=== PATIENT | male | born 1965 | race Hispanic/Latino ===

== ENCOUNTER 2018-08-13 19:27 | Emergency (ER) | payer SELFPAY ==
[2018-08-13 19:56] LABS: Absolute Monocytes 0.8 K/uL (0.1-1.3); Absolute Neutrophil 4.4 K/uL (1.8-8.0); Basophils % 0.5 % (0-1.3); Eosinophils % 2.1 % (0-4.4); Hematocrit 44.9 % (39.6-49.0); Lymphocytes % 35.8 % (15.3-44.8); MCH 30.2 pg (27.0-35.0); MPV 7.9 fL (7.6-11.3); Monocytes % 9.6 % (3.3-12.3); RBC Red Blood Cell Count 5.16 M/uL (4.33-5.43)
--- NOTE | 2018-08-13 19:56 | RAD REPORT ---
EXAM DESCRIPTION: CT - Ct Stroke Brain Wo Cont - 08/13/2018 7:41 pm CLINICAL HISTORY: Right-sided numbness of the face and arm, left arm weakness and slurred speech, di abetic history CLINICAL HISTORY: None. TECHNIQUE: Axial 5 millimeter thick images of the head were obtained without IV contrast. All CT scans are performed using dose optimization technique as appropriate and may include automated exposure control or mA/KV adjustment according to patient size. FINDINGS: No intracranial hemorrhage, mass, or cerebral edema. No acute cortical based infarction id entified. No cortical edema or sulcal effacement. No atrophy changes are present. There are scattered areas of diminished attenuation in the cerebral white matter most commonly associated with chronic i schemic change. Nonhemorrhagic acute CVA can be masked in this setting. No extra-axial fluid collecti ons. Guillen matter-white matter differentiation is preserved. Ventricles are normal. Visualized portions of the mastoid air cells, paranasal sinuses, and orbits are unremarkable. Findings telephoned to the referring physician 7:46 p.m. IMPRESSION: No hemorrhage is present and no acute cortical based infarction. White matter chronic ischemic changes are evident. No atrophy. Chronic ischemic changes can mask nonhemorrhagic acute infarction. MR brain followup can be obtained if there is ongoing concern for acute ischemia.
[2018-08-13 19:59] LABS: Protime INR 0.97
--- NOTE | 2018-08-13 20:07 | RAD REPORT ---
EXAM DESCRIPTION: RAD - Chest Single View - 08/13/2018 7:55 pm CLINICAL HISTORY: Stroke protocol chest film COMPARISON: None. TECHNIQUE: AP portable chest image was obtained 1941 hours . FINDINGS: Lungs are clear. Heart and vasculature are normal. No measurable pleural effusion and no p neumothorax. No acute bony abnormality seen. No acute aortic findings suspected. IMPRESSION: No acute cardiopulmonary process.
[2018-08-13 20:09] LABS: Potassium 3.7 mmol/L (3.5-5.1)
[2018-08-13] MEDS ORDERED: ASPIRIN 81 MG CHEWABLE TABLET ONE (20:10)
[2018-08-13] MEDS ORDERED: LABETALOL 20 MG/4ML SYRINGE IV ONE (20:10)
--- NOTE | 2018-08-13 21:03 | EDPHYS ---
Physician Documentation [facility] Name: Sarbjit Terry Age: 53 yrs Sex: Male : 1965 Arrival Date: 08/13/2018 Time: 19:29 Bed 3 Private MD: ED Physician Juancarlos Almanza HPI: 08/13 20:35 This 53 yrs old Male presents to ER via Ambulatory with complaints of Numbness wa Of Arm, Numbness Of Face. 20:35 The patient's problem is reported as paresthesias, in right upper extremity, in right wa side of face. Onset: The symptoms/episode began/occurred 1 hour(s) ago. Duration: This was a single incident. Context: the episode(s) was witnessed, by family, symptoms became apparent at an unknown time, occurred at home, occurred while the patient was eating, Possible contributing factors include: Patient is a know diabetic. HTN. pt states R face and arm became tingly and weak while having dinner. also numbness to R pectoral muscle. denies speech impediment. denies FUNK. denies h/o same in the past. The symptoms are alleviated by nothing. The symptoms are aggravated by nothing. Associated signs and symptoms: Pertinent positives: numbness, tingling, R face, RUE, and R pectoral area, Pertinent negatives: ataxia, blurred vision, chest pain, confusion, diaphoresis, dizziness, headache, lightheadedness, nausea, palpitations, seizure, shortness of breath. Severity of symptoms: At their worst the symptoms were moderate in the emergency department the symptoms are unchanged. Patient's baseline: Neuro: alert and fully oriented, Motor: no deficits, Ambulation: walks without assistance, Speech: normal, The patient has a previous history of HTN, DM. The patient has not experienced similar symptoms in the past. The patient has not recently seen a physician. Historical: - Allergies: 20:07 No Known Allergies; aj 20:07 No Known Allergies; aa1 - Home Meds: 20:07 Unable to obtain [Active]; aa1 - PMHx: 20:07 Hypertension; Diabetes - IDDM; aj 20:07 Hypertension; Diabetes - IDDM; aa1 - PSHx: 20:07 Appendectomy; aa1 - Immunization history:: Flu vaccine is not up to date. - Social history:: Smoking status: Patient/guardian denies using tobacco. - Ebola Screening: : Patient denies exposure to infectious person Patient denies travel to an Ebola-affected area in the 21 days before illness onset. - Family history:: not pertinent. - Hospitalizations: : No recent hospitalization is reported. ROS: 20:48 Constitutional: Negative for fever, chills, and weight loss, Eyes: Negative for injury, wa pain, redness, and discharge, ENT: Negative for injury, pain, and discharge, Neck: Negative for injury, pain, and swelling, Cardiovascular: Negative for chest pain, palpitations, and edema, Respiratory: Negative for shortness of breath, cough, wheezing, and pleuritic chest pain, Abdomen/GI: Negative for abdominal pain, nausea, vomiting, diarrhea, and constipation, Back: Negative for injury and pain, : Negative for injury, bleeding, discharge, and swelling, MS/Extremity: Negative for injury and deformity, Skin: Negative for injury, rash, and discoloration. 20:48 Neuro: Positive for tingling, weakness, numbness, R face, RUE, R chest wall. 20:48 All other systems are negative. Exam: 20:49 Radiologist reports: normal wa 20:49 Constitutional: This is a well developed, well nourished patient who is awake, alert, and in no acute distress. Head/Face: Normocephalic, atraumatic. Eyes: Pupils equal round and reactive to light, extra-ocular motions intact. Lids and lashes normal. Conjunctiva and sclera are non-icteric and not injected. Cornea within normal limits. Periorbital areas with no swelling, redness, or edema. ENT: Nares patent. No nasal discharge, no septal abnormalities noted. Tympanic membranes are normal and external auditory canals are clear. Oropharynx with no redness, swelling, or masses, exudates, or evidence of obstruction, uvula midline. Mucous membranes moist. Neck: Trachea midline, no thyromegaly or masses palpated, and no cervical lymphadenopathy. Supple, full range of motion without nuchal rigidity, or vertebral point tenderness. No Meningismus. Chest/axilla: Normal chest wall appearance and motion. Nontender with no deformity. No lesions are appreciated. Cardiovascular: Regular rate and rhythm with a normal S1 and S2. No gallops, murmurs, or rubs. Normal PMI, no JVD. No pulse deficits. Respiratory: Lungs have equal breath sounds bilaterally, clear to auscultation and percussion. No rales, rhonchi or wheezes noted. No increased work of breathing, no retractions or nasal flaring. Abdomen/GI: Soft, non-tender, with normal bowel sounds. No distension or tympany. No guarding or rebound. No evidence of tenderness throughout. Back: No spinal tenderness. No costovertebral tenderness. Full range of motion. Skin: Warm, dry with normal turgor. Normal color with no rashes, no lesions, and no evidence of cellulitis. MS/ Extremity: Pulses equal, no cyanosis. Neurovascular intact. Full, normal range of motion. Psych: Awake, alert, with orientation to person, place and time. Behavior, mood, and affect are within normal limits. 20:49 Neuro: Orientation: is normal, Mentation: is normal, Memory: is normal, Cranial nerves: grossly normal, Motor: Strength is 1/5 in the right arm, Sensation: decreased R upper and lower face. no droop, initial exam: pt noted to concentrate harder to keep RUE on par with LUE on pronator drift exam. He was able to hold it through through the exam however. no facial droop noted. LE strength was strong and symmetrical. subtle weakness of RUE noted on assessment of [facility] specialist strength. no dysarthria or slurred speech. Vital Signs: 19:43 BP 191 / 88; Pulse 78; Resp 16; Temp 99.5; Pulse Ox 100% on R/A; Weight 81.65 kg; aa1 Height 5 ft. 6 in. (167.64 cm); Pain 0/10; 19:59 BP 172 / 92; Pulse 84; Resp 16; Pulse Ox 100% on R/A; Pain 0/10; aa1 20:51 BP 166 / 87; Pulse 87; Resp 16; Temp 98.8; Pulse Ox 100% on R/A; Pain 0/10; aa1 19:43 Body Mass Index 29.05 (81.65 kg, 167.64 cm) aa1 NIH Stroke Scale Scores: 19:43 NIHSS Score: 3 aa1 20:22 NIHSS Score: 0 aa1 MDM: 19:53 Patient medically screened. id 20:53 Differential diagnosis: CVA, TIA, concern for acute CVA. stat conversation with id neurology at [facility] at 1950 hrs: Dr. Hester advised to consent pt for TPA. initial BP 190/88. plan to control for sys <185. Pt however noted with BP of 172/85 on the next check prior to labetalol admin so held the drug. risks and benefits of TPA advised. pt. consulted with family for about 20 min vacillating. initially refused, then agreed. Re-exam when he agreed, symptom have resolved. numbness to face and chest resolved. strength equal. numb sensation to right pec area resolved. pt at baseline. TPA held due to rapidly resolved symptoms. pt was given as ASA. discussed extensively with family for shared decision-making. Will transfer emergently to [facility] for further care. Data reviewed: vital signs, nurses notes. 21:00 Response to treatment: the patient's symptoms have markedly improved after treatment. id Physician consultation:. 21:02 Test interpretation: by ED physician or midlevel provider: EKG: HR 82. no dysrhythmia. id wnl. , not applicable. 21:04 Test interpretation: by ED physician or midlevel provider: normal coags. nml cbc. [facility] noted for elevated glucose of 142. Cr 1.4. 21:09 Test interpretation: by ED physician or midlevel provider: nml CXR. id 08/13 19:38 Order name: Basic Metabolic Panel; Complete Time: 20:34 08/13 19:38 Order name: CBC with Diff; Complete Time: 20:34 08/13 19:38 Order name: Protime (+inr); Complete Time: 20:34 08/13 19:38 Order name: Ptt, Activated; Complete Time: 20:34 08/13 19:38 Order name: CT Stroke Brain w/o Contrast 08/13 19:38 Order name: Stroke CXR 1 View; Complete Time: 21: 08/13 19:38 Order name: EKG; Complete Time: 19:39 08/13 19:38 Order name: Accucheck; Complete Time: 20:08 08/13 19:38 Order name: Cardiac monitoring; Complete Time: 20:08 08/13 19:38 Order name: EKG - Nurse/Tech; Complete Time: 20:08 08/13 19:38 Order name: IV Saline Lock; Complete Time: 20:08 bb 08/13 19:38 Order name: Labs collected and sent; Complete Time: 20: bb 08/13 19:38 Order name: NPO; Complete Time: 20: bb 08/13 19:38 Order name: O2 Per Protocol; Complete Time: 20: bb 08/13 19:38 Order name: O2 Sat Monitoring; Complete Time: 20: bb 08/13 19:38 Order name: Stroke Swallow Screen; Complete Time: 20:08 bb Administered Medications: 20:04 Drug: Aspirin Chewable Tablet 324 mg Route: PO; bb 21:00 Follow up: Response: No adverse reaction aa1 21:10 Not Given (Physician Discretion): Labetalol 10 mg IVP once over 2 mins aa1 Point of Care Testing: Blood Glucose: 19:49 Blood Glucose: 124 mg/dL; ds4 Ranges: Critical Glucose Levels:Adult <50 mg/dl or >400 mg/dl <40 mg/dl or >180 mg/dl Disposition: 08/13/18 21:[address] [facility]. Diagnosis is Transient Acute onset R facial and upper extremity numbness with R upper extremity weakness. - Reason for transfer: Higher level of care. - Accepting physician is Dr. Hester. - Condition is Stable. - Problem is new. - Symptoms have improved. Critical care time excluding procedures: 21:09 Critical care time: Bedside Care: 15 minutes, Consultation: 5 minutes, Family wa Intervention: 15 minutes. Total time: 35 minutes NIH Stroke Scale - NIH Stroke Score Date: 08/13/2018 Time: 19:43 Total Score = 3 1a. Level of Consciousness (LOC) - 0(Alert) 1b. Level of Consciousness (LOC) (Year \T\ Age) - 0(Both) 1c. LOC Commands (Open \T\ Closes Eyes/Medical Physics Professor) - 0(Both) 2. Best Gaze (Lateral Gaze Paresis) - 0(Normal) 3. Visual Field Loss - 0(No visual loss) 4. Facial Palsy - 0(Normal) 5a. Left Arm: Motor (10-second hold) - 0(No drift) 5b. Right Arm: Motor (10-second hold) - 1(Drift) 6a. Left Leg: Motor (5-second hold - always test supine) - 0(No drift) 6b. Right Leg: Motor (5-second hold - always test supine) - 0(No drift) 7. Limb Ataxia (finger/nose \T\ heel/sagastume - test with eyes open) - 0(Absent) 8. Sensory Loss (pinprick arms/legs/face) - 1(Mild to moderate loss) 9. Best Language: Aphasia (description/naming/reading) - 0(No aphasia) 10. Dysarthria (speech clarity - read or repeat words) - 1(Mild to Moderate) 11. Extinction and Inattention (visual/tactile/auditory/spatial/personal) - 0(No abnormality) Initials: aa1 NIH Stroke Scale - NIH Stroke Score Date: 08/13/2018 Time: 20:22 Total Score = 0 1a. Level of Consciousness (LOC) - 0(Alert) 1b. Level of Consciousness (LOC) (Year \T\ Age) - 0(Both) 1c. LOC Commands (Open \T\ Closes Eyes/Medical Physics Professor) - 0(Both) 2. Best Gaze (Lateral Gaze Paresis) - 0(Normal) 3. Visual Field Loss - 0(No visual loss) 4. Facial Palsy - 0(Normal) 5a. Left Arm: Motor (10-second hold) - 0(No drift) 5b. Right Arm: Motor (10-second hold) - 0(No drift) 6a. Left Leg: Motor (5-second hold - always test supine) - 0(No drift) 6b. Right Leg: Motor (5-second hold - always test supine) - 0(No drift) 7. Limb Ataxia (finger/nose \T\ heel/sagastume - test with eyes open) - 0(Absent) 8. Sensory Loss (pinprick arms/legs/face) - 0(Normal) 9. Best Language: Aphasia (description/naming/reading) - 0(No aphasia) 10. Dysarthria (speech clarity - read or repeat words) - 0(Normal) 11. Extinction and Inattention (visual/tactile/auditory/spatial/personal) - 0(No abnormality) Initials: aa1 Signatures: Dispatcher [employer] Vielka Morgan RN RN aa1 Deborah Jo RN RN aj Ballard, Brenda, RN RN bb Appiah, William, MD MD wa Corrections: (The following items were deleted from the chart) 21:10 21:02 08/13/2018 21:[address] [facility]. aa1 Diagnosis is Transient Acute onset R facial and upper extremity numbness with R upper extremity weakness. Reason for transfer: Higher level of care. Accepting physician is Dr. Hester. Condition is Stable. Problem is new. Symptoms have improved. wa
--- NOTE | 2018-08-13 21:03 | ER ---
Nurse's Notes [facility] Name: Sarbjit Terry Age: 53 yrs Sex: Male : 1965 Arrival Date: 08/13/2018 Time: 19:29 Bed 3 Private MD: Diagnosis: Transient Acute onset R facial and upper extremity numbness with R upper extremity weakness Presentation: 08/13 19:32 Presenting complaint: Patient states: Numbness and weakness to right arm and right side aj of face with slurred speech and unsteady gait that started at 1845. Patient states "I don't feel right.". Transition of care: patient was not received from another setting of care. 19:32 Method Of Arrival: Ambulatory 19:34 An acute neurological deficit is present. The charge nurse has been notified. The aj patient has been moved to a treatment area. Onset of symptoms was August 13, 2018 at 18:45. Risk Assessment: Do you want to hurt yourself or someone else? Patient reports no desire to harm self or others. Initial Sepsis Screen: Does the patient meet any 2 criteria? No. Patient's initial sepsis screen is negative. Does the patient have a suspected source of infection? No. Patient's initial sepsis screen is negative. Care prior to arrival: None. 19:34 Acuity: BREANNE 2 aj 19:43 Pre-hospital glucose is not applicable to this patient. aa1 Triage Assessment: 20:07 The onset of the patients symptoms was August 13, 2018 at 18:45. General: Appears in aj no apparent distress. uncomfortable, Behavior is cooperative, anxious. Pain: Denies pain. 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 Respiratory: Airway is patent Respiratory effort is even, unlabored, Respiratory pattern is regular, symmetrical. Derm: Skin is intact, is healthy with good turgor, Skin is pink, warm \\T\\ dry. normal. Stroke Activation: Symptom onset < 3 hours Physician: Stroke Attending; Name: ; Notified At: ; Arrived At: Physician: Chief Stroke Resident; Name: ; Notified At: ; Arrived At: Physician: Stroke Resident; Name: ; Notified At: ; Arrived At: Physician: ED Attending; Name: ; Notified At: ; Arrived At: Physician: ED Resident; Name: ; Notified At: ; Arrived At: Historical: - Allergies: 20:07 No Known Allergies; aj 20:07 No Known Allergies; aa1 - Home Meds: 20:07 Unable to obtain [Active]; aa1 - PMHx: 20:07 Hypertension; Diabetes - IDDM; aj 20:07 Hypertension; Diabetes - IDDM; aa1 - PSHx: 20:07 Appendectomy; aa1 - Immunization history:: Flu vaccine is not up to date. - Social history:: Smoking status: Patient/guardian denies using tobacco. - Ebola Screening: : Patient denies exposure to infectious person Patient denies travel to an Ebola-affected area in the 21 days before illness onset. - Family history:: not pertinent. - Hospitalizations: : No recent hospitalization is reported. Screenin:43 Abuse screen: Denies threats or abuse. Denies injuries from another. Nutritional aa1 screening: No deficits noted. Tuberculosis screening: No symptoms or risk factors identified. Fall Risk None identified. Assessment: 19:35 Reassessment: Patient appears in no apparent distress at this time. Pt taken directly aa1 to CT from triage. 19:43 Reassessment: Patient appears in no apparent distress at this time. Patient is alert, aa1 oriented x 3, equal unlabored respirations, skin warm/dry/pink. Pt arrived to ED [address] 19:45 General: Appears in no apparent distress. comfortable, Behavior is calm, cooperative, aa1 appropriate for age. Pain: Denies pain. Neuro: Level of Consciousness is awake, alert, obeys commands, Oriented to person, place, time, situation, Custom Dressmaker are equal bilaterally Moves all extremities. with slight weakness of RUE. Speech slightly slurred. Facial symmetry appears normal, Pupils are PERRLA, minimal decreased sensation of R face and arm. Denies blurred vision dizziness, difficulty swallowing, headache diplopia. Cardiovascular: Heart tones S1 S2 present Rhythm is regular. Respiratory: Airway is patent Respiratory effort is even, unlabored, Respiratory pattern is regular, symmetrical. GI: No signs and/or symptoms were reported involving the gastrointestinal system. : No signs and/or symptoms were reported regarding the genitourinary system. EENT: No signs and/or symptoms were reported regarding the EENT system. Derm: Skin is intact, is healthy with good turgor, Skin is pink, warm \\T\\ dry. Musculoskeletal: Circulation, motion, and sensation intact. Capillary refill < 3 seconds. 19:51 Patient has been NPO before screening. The patient is alert, and able to follow aa1 commands. The patient does not exhibit slurred or garbled speech. The patient is not exhibiting difficulty speaking. The patient does not exhibit difficulty understanding words. The patient is able to swallow own secretions with no drooling or need for suction. Patient tolerated one teaspoon of water. No drooling, immediate coughing, gurgling, or clearing of the throat was noted. The patient tolerated 90mL of water. No drooling, immediate coughing, gurgling, or clearing of the throat was noted. The patient passed the bedside swallow screening. Oral medications may be given as ordered. Contact Physician for further diet orders. Provider notified of bedside swallow screening results: Juancarlos Almanza MD. 20:00 Reassessment: Patient appears in no apparent distress at this time. Dr. Almanza at aa1 bedside discussing TPA administration with pt \\T\\ family. Pt unsure if he would like to receive medication or not and would like some time to discuss with family. 20:22 Reassessment: Patient appears in no apparent distress at this time. Patient is alert, aa1 oriented x 3, equal unlabored respirations, skin warm/dry/pink. Dr. Amlanza at bedside re-discussing TPA with pt \\T\\ family. At this time pt's symptoms have completely resolved with current NIH scale of 0. Pt \\T\\ family decide at this this time that they would not like to do the TPA administration. 20:23 T-PA (Activase) Screening: Indications: Definite evidence of stroke, ischemic, embolic, aa1 or hypertensive: No. Treatment will start within 4.5 hours onset of symptoms: Yes. No evidence of intracranial hemorrhage or CT of head and no evidence of peripheral hemorrhage or recent CVA: Yes. Consent for thrombolytic therapy: No. Contraindications: Rapidly improving condition or minor deficit: Yes. 20:40 Reassessment: Report given to Reyna Hill RN at [facility]. Reassessment:.aa1 20:52 Reassessment: Patient appears in no apparent distress at this time. Patient is alert, aa1 oriented x 3, equal unlabored respirations, skin warm/dry/pink. [employer] present at bedside for transport Patient denies pain at this time. Patient states feeling better. Vital Signs: 19:43 BP 191 / 88; Pulse 78; Resp 16; Temp 99.5; Pulse Ox 100% on R/A; Weight 81.65 kg; aa1 Height 5 ft. 6 in. (167.64 cm); Pain 0/10; 19:59 BP 172 / 92; Pulse 84; Resp 16; Pulse Ox 100% on R/A; Pain 0/10; aa1 20:51 BP 166 / 87; Pulse 87; Resp 16; Temp 98.8; Pulse Ox 100% on R/A; Pain 0/10; aa1 19:43 Body Mass Index 29.05 (81.65 kg, 167.64 cm) aa1 NIH Stroke Scale Scores: 19:43 NIHSS Score: 3 aa1 20:22 NIHSS Score: 0 aa1 ED Course: 19:29 Patient arrived in ED. ag3 19:42 CT Stroke Brain w/o Contrast In Process Unspecified. EDMS 19:43 Initial lab(s) drawn, by me, sent to lab. Missed attempt(s): 18 gauge in left aa1 antecubital area. Bleeding controlled, band aid applied, catheter tip intact. 19:43 Patient has correct armband on for positive identification. Placed in gown. Bed in low aa1 position. Call light in reach. technical account manager on. Pulse ox on. NIBP on. 19:44 Juancarlos Almanza MD is Attending Physician. cp 19:45 Inserted saline lock: 20 gauge in right antecubital area, using aseptic technique. aa1 19:50 EKG done, by ED staff, reviewed by Juancarlos Almanza MD. ds4 19:53 X-ray completed. Portable x-ray completed in exam room. Patient tolerated procedure bb2 well. 19:55 Stroke CXR 1 View In Process Unspecified. EDMS 20:07 Triage completed. aj 20:07 Arm band placed on left wrist. Patient Patient escorted to CT directly from [facility]. aj 20:22 No provider procedures requiring assistance completed. Patient admitted, IV remains in aa1 place. 20:34 Vielka Moura, RN is Primary Nurse. aa1 Administered Medications: 20:04 Drug: Aspirin Chewable Tablet 324 mg Route: PO; bb 21:00 Follow up: Response: No adverse reaction aa1 21:10 Not Given (Physician Discretion): Labetalol 10 mg IVP once over 2 mins aa1 Point of Care Testing: Blood Glucose: 19:49 Blood Glucose: 124 mg/dL; ds4 Ranges: Outcome: 21:00 Transferred by helicopter to [facility], Transfer form completed. aa1 21:00 Condition: stable 21:00 Discharge instructions given to patient, family, Instructed on the need for transfer, Demonstrated understanding of instructions. 21:02 ER care complete, transfer ordered by . wa 21:10 Patient left the ED. aa1 NIH Stroke Scale - NIH Stroke Score Date: 08/13/2018 Time: 19:43 Total Score = 3 1a. Level of Consciousness (LOC) - 0(Alert) 1b. Level of Consciousness (LOC) (Year \\T\\ Age) - 0(Both) 1c. LOC Commands (Open \\T\\ Closes Eyes/Cement Mixer) - 0(Both) 2. Best Gaze (Lateral Gaze Paresis) - 0(Normal) 3. Visual Field Loss - 0(No visual loss) 4. Facial Palsy - 0(Normal) 5a. Left Arm: Motor (10-second hold) - 0(No drift) 5b. Right Arm: Motor (10-second hold) - 1(Drift) 6a. Left Leg: Motor (5-second hold - always test supine) - 0(No drift) 6b. Right Leg: Motor (5-second hold - always test supine) - 0(No drift) 7. Limb Ataxia (finger/nose \\T\\ heel/sagastume - test with eyes open) - 0(Absent) 8. Sensory Loss (pinprick arms/legs/face) - 1(Mild to moderate loss) 9. Best Language: Aphasia (description/naming/reading) - 0(No aphasia) 10. Dysarthria (speech clarity - read or repeat words) - 1(Mild to Moderate) 11. Extinction and Inattention (visual/tactile/auditory/spatial/personal) - 0(No abnormality) Initials: aa1 NIH Stroke Scale - NIH Stroke Score Date: 08/13/2018 Time: 20:22 Total Score = 0 1a. Level of Consciousness (LOC) - 0(Alert) 1b. Level of Consciousness (LOC) (Year \\T\\ Age) - 0(Both) 1c. LOC Commands (Open \\T\\ Closes Eyes/Cement Mixer) - 0(Both) 2. Best Gaze (Lateral Gaze Paresis) - 0(Normal) 3. Visual Field Loss - 0(No visual loss) 4. Facial Palsy - 0(Normal) 5a. Left Arm: Motor (10-second hold) - 0(No drift) 5b. Right Arm: Motor (10-second hold) - 0(No drift) 6a. Left Leg: Motor (5-second hold - always test supine) - 0(No drift) 6b. Right Leg: Motor (5-second hold - always test supine) - 0(No drift) 7. Limb Ataxia (finger/nose \\T\\ heel/sagastume - test with eyes open) - 0(Absent) 8. Sensory Loss (pinprick arms/legs/face) - 0(Normal) 9. Best Language: Aphasia (description/naming/reading) - 0(No aphasia) 10. Dysarthria (speech clarity - read or repeat words) - 0(Normal) 11. Extinction and Inattention (visual/tactile/auditory/spatial/personal) - 0(No abnormality) Initials: aa1 Signatures: Dispatcher [employer] Vielka Morgan RN RN aa1 Deborah Jo RN RN aj Ballard, Brenda, RN RN bb Swanson, Donovan ds4 González Maldonado PA PA cp Appiah, William, MD MD wa Bock, Brittany bb2 Candace Reyes ag3
--- NOTE | 2018-08-14 07:10 | EKG ---
Test Date: 2018-08-13 Test Time: 19:43:24 Dietitian Chief: LIANG MEASUREMENT RESULTS: Intervals: Rate: 82 WI: 122 QRSD: 88 QT: 356 QTc: 415 [place]: P: 20 WI: 122 QRS: -16 T: 31 INTERPRETIVE STATEMENTS: Normal sinus rhythm Normal ECG No previous ECG available for comparison Electronically Signed On 08-14-18 07:10:07 ELECTRONIC INSTRUMENT TRADES WORKER by Joe Tellez
== END 2018-08-13 21:10 | disposition short-term general hospital (02) ==
LOC: ER 19:27
DX: R20.0 Anesthesia of skin (principal); R53.1 Weakness; I10 Essential (primary) hypertension; E11.9 Type 2 diabetes mellitus without complications
CPT/HCPCS: 36415; 70450; 71045; 80048; 82962; 85025; 85610; 85730; 93005; 99285